=== PATIENT | female | born 1970 | race African-American/Black ===

== ENCOUNTER 2021-03-08 05:25 | Inpatient (IN) | payer MEDICAID, SELFPAY ==
[~2021-03-08] VITALS: Ht 170.2 cm; Wt 72.6 kg
[2021-03-08 06:25] LABS: HCG,QUAL RESULT NEGATIVE (NEGATIVE)
[2021-03-08 07:04] LABS: BASOPHILS # (AUTO) 0.1 K/uL (0.0-0.2); BASOPHILS % (AUTO) 1.2 % (0.0-2.0); EOSINOPHILS # (AUTO) 0.1 K/uL (0.0-0.4); EOSINOPHILS % (AUTO) 1.5 % (0.0-4.0); HEMATOCRIT 32.1 % (36-48); HEMOGLOBIN 10.5 g/dL (12.0-16.0); LYMPHOCYTES # (AUTO) 2.2 K/uL (1.0-5.5); LYMPHOCYTES % (AUTO) 26.3 % (20.5-51.5); MEAN CORPUSCULAR HEMOGLOBIN 26 pg (27-31); MEAN CORPUSCULAR HGB CONC 33 % (32-36); MEAN CORPUSCULAR VOLUME 78 fL (79.0-98.0); MONOCYTES % (AUTO) 11.9 % (1.7-9.3); NEUTROPHILS # (AUTO) 4.9 K/uL (1.8-7.7); NEUTROPHILS % (AUTO) 59.1 % (40.0-70.0); PLATELET COUNT (AUTO) 338 K/uL (130-430); RED CELL DISTRIBUTION WIDTH 20.4 % (9.0-15.0); WHITE BLOOD COUNT (AUTO) 8.2 K/uL (4.8-10.8)
[2021-03-08] MEDS ORDERED: FERR-69 PO (07:15)
[2021-03-08] MEDS ORDERED: HYDROmorphone 2 MG/ML VIAL IVP PRN (08:00)
[2021-03-08] MEDS ORDERED: SIMETHICONE 80 MG TAB.CHEW PO PRN (08:00)
[2021-03-08] MEDS ORDERED: OXYCODONE/ACETAMINOPHEN 5-325 TABLET PO PRN ×2 (08:00)
[2021-03-08] MEDS ORDERED: IBUPROFEN 800 MG TABLET PO PRN ×2 (08:00)
[2021-03-08] MEDS ORDERED: ONDANSETRON HCL 4 MG/2 ML VIAL IVP PRN (08:30)
[2021-03-08] MEDS ORDERED: METOCLOPRAMIDE HCL 10 MG/2 ML VIAL IVP PRN (08:30)
[2021-03-08] MEDS ORDERED: fentaNYL CITRATE/PF 100 MCG/2 ML AMP IVP PRN ×2 (08:30)
[2021-03-08 08:38] LABS: CALCIUM 8.6 mg/dL (8.4-11.0); CREATININE 0.74 mg/dL (0.55-1.30); POTASSIUM 4.1 mmol/L (3.5-5.1)
[2021-03-08 08:43] LABS: ALBUMIN 3.1 g/dL (3.4-4.8); TOTAL BILIRUBIN 0.2 mg/dL (0.0-1.0)
[2021-03-08] MEDS ORDERED: fentaNYL CITRATE/PF 100 MCG/2 ML AMP ONE ×2 (09:05→09:22)
[2021-03-08] MEDS ORDERED: NS IRRIG SOLN 1000 ML IR ONE (09:05)
[2021-03-08] MEDS ORDERED: BUPIVACAINE /PF 0.25% 30 ML VIAL INJ ONE (09:05)
[2021-03-08] MEDS ORDERED: LR 1,000 ML IV.SOLN IV ONE (09:05)
[2021-03-08] MEDS ORDERED: MIDAZOLAM HCL 5 MG/ML VIAL (VERSED) IV ONE (09:05)
[2021-03-08] MEDS ORDERED: SEVOFLURANE 15 MIN GAS INH ONE (09:05)
[2021-03-08] MEDS ORDERED: PROPOFOL 200MG/ 20ML VIAL (DIPRIVAN) IV ONE (09:05)
[2021-03-08] MEDS ORDERED: BUPIVACAINE LIPOSOME/PF 266 MG/20 ML VIAL INFIL ONE (09:30)
[2021-03-08] MEDS ORDERED: HYDROmorphone 1 MG/ML INJ. CARTRIDGE IVP ONE (09:42)
[2021-03-08] MEDS ORDERED: HYDROmorphone 1 MG/ML INJ. CARTRIDGE ONE (09:45)
--- NOTE | 2021-03-08 10:30 | NUR ---
Post Op Admission Notes: Patient awake upon admission.Routine post op vital signs taken,afebrile. Stable. Received report from pacu nurse Rachelle. With lower abdomen,midline incision,with steri strips on,clean and dry. Piña draining to clear urine. Call light with in reach. Bed locked at lowest position. Continue to monitor. Addendum: 03/08/21 at 1854 by Staci Valencia RN CORRECTED ABOVE NOTES: WITH LOWER MIDLINE SURGICAL DRESSING ON,CLEAN AND DRY.
[2021-03-08 11:20] VITALS: BP_SYST 119
[2021-03-08] MEDS: KETOROLAC TROMETHAMINE 30 MG VIAL IVP PRN ×2 (12:11→20:49)
[2021-03-08 12:45] VITALS: BP_SYST 119
[2021-03-08] MEDS: LR 1,000 ML IV SCH ×2 (16:00→17:22)
[2021-03-08 16:34] VITALS: BP_SYST 119
--- NOTE | 2021-03-08 18:09 | NUR ---
END OF SHIFT: PATIENT STARTED DRINKING WATER,BROTH FOR NOW. IV FLUIDS RUNNING AT RIGHT HAND INTACT. POST OP PAIN 09/06.NO PAIN MEDICATIONS REQUESTED. MIDLINE SURGICAL DRESSING,CLEAN AND DRY. CALL LIGHT WITH IN REACH. BED LOCKED AT LOWEST POSITION. STABLE.
[2021-03-08 20:00] VITALS: BP_SYST 122
[2021-03-08] MEDS: DOCUSATE SODIUM 100 MG CAPSULE PO SCH (20:48)
[2021-03-08] MEDS ORDERED: TEMAZEPAM 15 MG CAPSULE PO PRN (21:00)
--- NOTE | 2021-03-08 22:00 | NUR ---
ROUNDING NOTES Patient resting in bed - no s/s pain or distress noted. Respirations even and unlabored - head of bed elevated. IV site patent - no s/s redness, infection, or infiltration. Bed locked and in lowest position. Call light within reach - bed alarm on.
--- NOTE | 2021-03-09 | NUR ---
SALAZAR CATHETER DISCONTINUED AT THIS TIME Salazar catheter removed at this time.
--- NOTE | 2021-03-09 | NUR ---
ROUNDING NOTES Patient resting in bed - no s/s pain or distress noted. Respirations even and unlabored - head of bed elevated. IV site patent - no s/s redness, infection, or infiltration. Bed locked and in lowest position. Call light within reach - bed alarm on. Addendum: 03/09/21 at 0619 by Jermaine Kim RN Patient able to tolerate liquids PO - drank full cup of water. Afebrile. LR discontinued at this time.
[2021-03-09 00:30] VITALS: BP_SYST 128
--- NOTE | 2021-03-09 07:40 | NUR ---
Opening note Received report from night nurse. Patient is alert and oriented x4. On room air and tolerating well with no signs of shortness of breath noted. IV is patent, saline locked. Bed locked and in lowest position. Call light within reach. Will continue to monitor.
[2021-03-09 08:00] VITALS: BP_SYST 114
[2021-03-09] MEDS: DOCUSATE SODIUM 100 MG CAPSULE PO SCH ×2 (08:32→21:21)
[2021-03-09 08:39] LABS: BASOPHILS # (AUTO) 0.1 K/uL (0.0-0.2); BASOPHILS % (AUTO) 0.6 % (0.0-2.0); EOSINOPHILS # (AUTO) 0.1 K/uL (0.0-0.4); EOSINOPHILS % (AUTO) 0.5 % (0.0-4.0); HEMOGLOBIN 10.1 g/dL (12.0-16.0); LYMPHOCYTES # (AUTO) 1.6 K/uL (1.0-5.5); LYMPHOCYTES % (AUTO) 14.4 % (20.5-51.5); MEAN CORPUSCULAR HEMOGLOBIN 25 pg (27-31); MEAN CORPUSCULAR HGB CONC 33 % (32-36); MEAN CORPUSCULAR VOLUME 78 fL (79.0-98.0); MONOCYTES # (AUTO) 1.2 K/uL (0.0-1.0); MONOCYTES % (AUTO) 10.9 % (1.7-9.3); NEUTROPHILS # (AUTO) 8.1 K/uL (1.8-7.7); NEUTROPHILS % (AUTO) 73.6 % (40.0-70.0); PLATELET COUNT (AUTO) 321 K/uL (130-430); RED CELL DISTRIBUTION WIDTH 20.6 % (9.0-15.0)
--- NOTE | 2021-03-09 09:44 | NUR ---
Nutrition Update Devin Scale 18 noted. Pt admitted for intramural leiomyoma of uterus. Diet: regular & clear liquid (2 active, separate diet orders) BMI: 25.1 kg/m2 RD to follow per nutrition care standards.
[2021-03-09] MEDS: KETOROLAC TROMETHAMINE 30 MG VIAL IVP PRN (11:00)
--- NOTE | 2021-03-09 11:00 | NUR ---
PAIN Patient assisted to bathroom. C/O pain to lower abdomen. Torodol IVP given. Will monitor.
[2021-03-09 12:00] VITALS: BP_SYST 118
[2021-03-09 17:48] VITALS: BP_SYST 114
--- NOTE | 2021-03-09 18:33 | NUR ---
Closing note Patient is resting in bed. On room air and tolerating well with no signs of shortness of breath noted. IV is patent, saline locked. Bed locked and in lowest position. Call light within reach. All needs met throughout shift. Will endorse to night nurse.
--- NOTE | 2021-03-09 19:40 | NUR ---
initial notes: pt in bed, AAO x4. no pain, no sob, stable. pt incision is covered with dressing- clean dry and intact. explain possible discharge tomorrow. pt verbalized understanding. pt is given the original prescription. needs attended, call light in reach. low bed position. will follow-up.
[2021-03-09 19:45] VITALS: BP_SYST 115
[2021-03-10] VITALS: BP_SYST 116
--- NOTE | 2021-03-10 00:20 | NUR ---
pt is resting no pain, no distress, not bleeding, stable vital sign, brp.
[2021-03-10] MEDS: KETOROLAC TROMETHAMINE 30 MG VIAL IVP PRN ×2 (01:04→14:50)
[2021-03-10] MEDS ORDERED: OXYC-128 PO (04:14)
[2021-03-10] MEDS ORDERED: IBUP-1971 PO (04:15)
[2021-03-10] MEDS ORDERED: DOCU250C71 PO (04:15)
--- NOTE | 2021-03-10 06:36 | NUR ---
closing: pt is resting, no sign of pain and discomfort, not distress, vitals stable. iv lock intact and patent. BRP. needs attended the whole shift. call light with the pt. will continue to monitor until sbar reporting given to am rn.
[2021-03-10 14:54] VITALS: BP_SYST 121
--- NOTE | 2021-03-10 15:18 | NUR ---
ALERT, ORIENTED, NO COMPLAINT OF PAIN WHEN FIRST SEEN THIS AM. TOLERATED HER REGULAR DIET WELL, RESTING 1500 STARTS COMPLAINING OF PAIN SUGGESTED SHE TAKE MOTRIN 800MG PO, DECLINED. DEMANDED TORADOL 30MG IVP, GIVEN PER REQUEST. NOW AWAITING THE RIDE, PATIENT DISCHARGED TO HOME
== END 2021-03-10 15:35 | disposition home or self-care (01) | DRG 519 ==
LOC: SMU 05:25
PROVIDERS: ADMIT Obstetrics & Gynecology; ATTEND Obstetrics & Gynecology
PROC: 0UT70ZZ Resection of Bilateral Fallopian Tubes, Open Approach (ICD-10-PCS; 2021-03-08)
PROC: 0UT20ZZ Resection of Bilateral Ovaries, Open Approach (ICD-10-PCS; 2021-03-08)
PROC: 0UT90ZL Resection of Uterus, Supracervical, Open Approach (ICD-10-PCS; principal; 2021-03-08 07:30)
DX: D25.9 Leiomyoma of uterus, unspecified (principal); N92.0 Excessive and frequent menstruation with regular cycle; Z20.822 Contact with and (suspected) exposure to COVID-19
CPT/HCPCS: 36415; 80053; 84703; 85025; 86886; 86900; 86901; 87081; 88305; 88307; 93005; C9290; J1170; J1885; J2250; J2704; J3010; J3490; J7120